=== PATIENT | female | born 1935 | race Hispanic/Latino ===

== ENCOUNTER 2017-08-15 10:44 | Outpatient (CLI) | payer MEDICARE ==
--- NOTE | 2017-08-15 11:17 | XRay Report ---
CHEST TWO VIEWS: 08/15/17 10:44:00 CLINICAL: History of left breast cancer. COMPARISON: None FINDINGS: Extensive bilateral multilobar reticular interstitial opacities which are greater in the lower lobes. No pulmonary consolidation. No pulmonary nodule or mass. No pleural effusion. The heart is normal size. The central pulmonary arteries are relatively large. Degenerative change in the spine. Bilateral surgical clips in the anterior chest wall and axillae. IMPRESSION: Multilobar interstitial disease of uncertain etiology. The differential includes interstitial pneumonia, idiopathic pulmonary fibrosis and metastatic disease as well as a myriad of other possibilities.Consider high-resolution CT Chest. No CHF.
== END 2017-08-15 10:45 | disposition home or self-care (01) ==
LOC: SPVIMAG 10:44
PROVIDERS: ATTEND Internal Medicine Hematology & Oncology
DX: J84.89 Other specified interstitial pulmonary diseases (principal); M47.894 Other spondylosis, thoracic region; D05.12 Intraductal carcinoma in situ of left breast; C94.80 Other specified leukemias not having achieved remission; C91.Z0 Other lymphoid leukemia not having achieved remission
CPT/HCPCS: 71020